=== PATIENT | male | born 2000 | race Caucasian/White ===

== ENCOUNTER 2019-02-21 10:05 | Emergency (ER) | payer OTHER ==
--- NOTE | 2019-02-21 10:12 | EDPHY ---
H & P Stated Complaint: fall down stairs. back/R leg pain Time Seen by Provider: 02/21/19 10:12 - Personal History Current Tetanus/Diphtheria Vaccine: Yes Current Tetanus Diphtheria and Acellular Pertussis (TDAP): Yes - Medical/Surgical History Hx Asthma: No Hx Chronic Respiratory Disease: No Hx Diabetes: No Hx Cardiac Disease: No Hx Renal Disease: No Hx Cirrhosis: No Hx Alcoholism: No Hx HIV/AIDS: No Hx Splenectomy or Spleen Trauma: No Other PMH: L5 fx - Social History Smoking Status: Never smoked Constitutional: Initial Vital Signs Temperature (C) 37 C 02/21/19 10:09 Heart Rate 77 02/21/19 10:09 Respiratory Rate 16 02/21/19 10:09 Blood Pressure 142/67 H 02/21/19 10:09 O2 Sat (%) 93 02/21/19 10:09 O2 Delivery Mode Room Air Allergies/Adverse Reactions: No Known Allergies Allergy (Unverified 02/21/19 10:09) Home Medications: Medication Instructions Recorded NK [No Known Home Meds] 02/21/19 Medical Decision Making - Diagnostics Imaging: Discussed imaging studies w/ account director Radiologist, I viewed and interpreted images myself ED Course/Re-evaluation: CHIEF COMPLAINT: Back pain and right-sided radiculopathy after fall HISTORY OF PRESENT ILLNESS: The patient is a 19 y/o male with a history of an L5 fracture and right-sided radiculopathy complaining of low back pain and right-sided radiculopathy after tripping and falling down several stairs today. He reports that he initially was feeling a tingling sensation down his right thigh and a small amount in his foot. Now his is primarily having numbness down his right leg and low back pain. As his symptoms are not improving and similar to a prior L5 fracture, he decided to present to the emergency department. The pain is exacerbated with movement, but not that noticeable while standing or lying still. No fever, headache, body aches, lightheadedness, chest pain, heart palpitations, shortness of breath, cough, abdominal pain, urinary or bowel complaints. REVIEW OF SYSTEMS: A comprehensive 10 system review of systems is otherwise negative aside from elements mentioned in the history of present illness and medical decision making. PHYSICAL EXAM: HR, BP, O2 Sat, RR. Temp noted General Appearance: Alert, well hydrated, appropriate, and non-toxic appearing. Head: Atraumatic without scalp tenderness or obvious injury Eyes: Pupils equal, round, reactive to light and accommodation, EOMI, no trauma , no injection. Ears: Clear bilaterally, no perforation, normal landmarks Nose: Atraumatic, no rhinorrhea, clear. Throat: There is no erythema or exudates, no lesions, normal tonsils, mucus membranes moist. Neck: Supple, 2+ carotid upstroke, nontender, no lymphadenopathy. Respiratory: No retractions, no distress, no wheezes, and no accessory muscle use. Lungs are clear to auscultation bilaterally. Cardiovascular: Regular rate and rhythm, no murmurs, rubs, or gallops. Bilateral carotid, radial, dorsalis pedis, and posterior tibial pulses intact. Good capillary refill all extremities. Gastrointestinal: Abdomen is soft, nontender, non-distended, no masses, no rebound, no guarding, no peritoneal signs. Musculoskeletal: Lumbar spine tenderness to palpation, worse along lower lumbar. Normal active ROM of all extremities, atraumatic. Neurological: Alert, appropriate, and interactive. The patient has normal DTRs and non-focal cranial nerves, motor, sensory, and cerebellar exam. Skin: No rashes, good turgor, no nodules on palpation. Past medical history: L5 fracture Past surgical history: Denies Family history: Denies Social history: Mother at bedside, lives in [place], [facility] DIAGNOSTICS/PROCEDURES/CRITICAL CARE TIME: Lumbar spine MRI: No acute findings. DIFFERENTIAL DIAGNOSIS: The differential diagnosis for the patient's back pain included but was not limited to musculoskeletal pain, epidural abscess, herniated disk, spinal fracture, and intra-abdominal causes including urinary system. MEDICAL DECISION MAKING: The patient is a 19 y/o male with a history of an L5 fracture and right-sided radiculopathy presenting with low back pain and right-sided radiculopathy after tripping and falling down several stairs today. He reports that he initially was feeling a tingling sensation down his right thigh and a small amount in his foot. Now his is primarily having numbness down his right leg and low back pain. The pain is exacerbated with movement, but not that noticeable while standing or lying still. He is denying pain medication at this time. On exam he has lumbar spine tenderness to palpation, worse along lower lumbar. Patient will need a lumbar spine MRI as he is having radiculopathy after trauma. 1133: I spoke with Dr. Mcghee, radiologist, who reports there are no acute findings on the patient's lumbar spine MRI. 1134: Reassessed patient and discussed imaging findings. I have advised him to follow up with a neurosurgeon and take Motrin for his symptoms. Return precautions provided; patient is comfortable with this plan. Departure - Departure Disposition: Home, Routine, Self-Care Clinical Impression: Lumbar pain with radiation down right leg Condition: Good Instructions: Acute Low Back Pain (ED), Lumbar Radiculopathy (ED), Back Pain ( ED) Additional Instructions: 1. Followup with a counseling specialist within one week. 2. Return to the emergency department for severe pain, fever, numbness, difficulty walking, change in location or nature of pain or other concerns. 3. Use ibuprofen and Tylenol as directed. 4. Try using a heating pad. Referrals: London Snider MD [Primary Care Provider] - As per Instructions Gilmar Montilla MD [Medical Doctor] - As per Instructions Report Scribed for: Carlos Ramesh Report Scribed by: Ani Garcia Date of Report: 02/21/19 Time of Report: 10:13
[2019-02-21 11:47] VITALS: BP 141/87
== END 2019-02-21 11:46 | disposition home or self-care (01) ==
DX: M54.16 Radiculopathy, lumbar region (principal); W10.8XXA Fall (on) (from) other stairs and steps, initial encounter